=== PATIENT | female | born 1935 | race Caucasian/White ===

== ENCOUNTER 2017-07-02 14:43 | Inpatient (IN) | payer MEDICARE, OTHER ==
[~2017-07-02] VITALS: Ht 162.6 cm; Wt 91.6 kg
[2017-07-02] MEDS ORDERED: ALBUTEROL/IPRATROPIUM 2.5MG/0.5MG, 3 ML ONE (15:18)
[2017-07-02] MEDS ORDERED: SODIUM CHLORIDE FLUSH 10ML SYR IVF ONE (15:30)
[2017-07-02] MEDS ORDERED: ALBUTEROL SULFATE 2.5 MG/3 ML NPPB ONE (15:30)
[2017-07-02 15:51] LABS: BASOPHILS # (AUTO) 0.02 x10^3/uL (0-0.1); BASOPHILS % (AUTO) 0 % (0-1); EOSINOPHILS # (AUTO) 0.21 x10^3/uL (0-0.4); EOSINOPHILS % (AUTO) 4 % (1-7); LYMPHOCYTES # (AUTO) 1.93 x10^3/uL (1-3.4); LYMPHOCYTES % (AUTO) 32 % (22-44); MD NO; MEAN CORPUSCULAR HEMOGLOBIN 32.1 pg (27.0-34.8); MEAN CORPUSCULAR VOLUME 97.5 fL (80-100); MEAN PLATELET VOLUME 7.5 fL (7.4-10.4); MONOCYTES # (AUTO) 0.45 x10^3/uL (0.2-0.8); MONOCYTES % (AUTO) 7 % (2-9); NEUTROPHILS # (AUTO) 3.43 x10^3/uL (1.8-6.8); NEUTROPHILS % (AUTO) 57 % (42-75); PLATELET COUNT 292 x10^3/uL (130-400); RED BLOOD COUNT 4.34 x10^6/uL (3.82-5.3); RED CELL DISTRIBUTION WIDTH 14.9 % (9.6-15.2)
[2017-07-02 16:00] LABS: INTERNATIONAL NORMALIZED RATIO 1.23 (0.93-1.1); PROTHROMBIN TIME 12.6 Seconds (9.6-11.5)
[2017-07-02 16:04] LABS: ALBUMIN 3.3 g/dL (3.4-5.0); ANION GAP 7 mmol/L (5-15); CALCIUM 8.4 mg/dL (8.5-10.1); CHLORIDE 105 mmol/L (98-107)
[2017-07-02 16:10] LABS: ALANINE AMINOTRANSFERASE 28 U/L (12-78); ALKALINE PHOSPHATASE 82 U/L (45-117); BILIRUBIN,TOTAL 0.6 mg/dL (0.2-1.0); CREATININE 1.06 mg/dL (0.55-1.02); TOTAL PROTEIN 7.6 g/dL (6.4-8.2); TROPONIN I < 0.015 ng/mL (0.000-0.045)
[2017-07-02] MEDS ORDERED: ENOXAPARIN 100 MG/ML SQ ONE (17:00)
[2017-07-02] MEDS: SODIUM CHLORIDE 0.9% 1,000 ML IV SCH (17:17)
[2017-07-02] MEDS ORDERED: ROPI4TAB4 PO (17:24)
[2017-07-02] MEDS ORDERED: FURO20TA3 PO (17:24)
[2017-07-02] MEDS ORDERED: DIAZ2TAB3 PO (17:24)
[2017-07-02] MEDS ORDERED: CYCL5TAB PO (17:24)
[2017-07-02] MEDS ORDERED: CELE200C PO (17:24)
[2017-07-02] MEDS ORDERED: LEVO112T4 PO (17:24)
[2017-07-02] MEDS ORDERED: GABA300C10 PO ×2 (17:24)
[2017-07-02] MEDS ORDERED: CITA10TA4 PO (17:24)
[2017-07-02] MEDS ORDERED: SIMV20TA3 PO (17:24)
[2017-07-02] MEDS ORDERED: HYDR-3237 PO (17:24)
[2017-07-02] MEDS ORDERED: WARF-36 PO (17:24)
[2017-07-02] MEDS ORDERED: HYDROcodone/APAP 5/325 TABLET PO PRN (17:30)
[2017-07-02] MEDS: CEFTRIAXONE PMX 2GM/50ML 50 ML IV SCH (17:30)
[2017-07-02] MEDS ORDERED: ACETAMINOPHEN 325 MG TABLET PO PRN (17:30)
[2017-07-02] MEDS ORDERED: ONDANSETRON 2MG/ML, 2ML IVPush PRN (17:30)
[2017-07-02] MEDS ORDERED: GUAIFENESIN/DM 200-20MG, 10ML UDC PO PRN (17:30)
[2017-07-02] MEDS ORDERED: DIAZEPAM 2 MG TABLET PO PRN (17:30)
[2017-07-02] MEDS ORDERED: CEFTRIAXONE PMX 2GM/50ML 50 ML ONE (17:40)
[2017-07-02] MEDS ORDERED: WARFARIN 3 MG TABLET PO-COUM ONE (19:30)
[2017-07-02 19:35] VITALS: BP 143/77
[2017-07-02 20:02] VITALS: BP 143/77
[2017-07-02] MEDS ORDERED: ALBUTEROL SULFATE 2.5 MG/3 ML ONE (20:49)
[2017-07-02] MEDS: SIMVASTATIN 20 MG TABLET PO SCH (21:42)
[2017-07-02] MEDS: ROPINIROLE 1MG TABLET PO SCH (21:42)
[2017-07-02] MEDS: GABAPENTIN 250 MG/5 ML ORAL SOL PO SCH (21:42)
[2017-07-02] MEDS: CYCLOBENZAPRINE 10 MG TABLET PO SCH (21:42)
[2017-07-02 23:46] LABS: RAPID INFLUENZA A Negative (Negative); RAPID INFLUENZA B Negative (Negative)
[2017-07-03 00:13] VITALS: BP 129/70
[2017-07-03] MEDS: LEVOTHYROXINE 112 MCG TABLET PO SCH (05:11)
[2017-07-03 05:17] LABS: INTERNATIONAL NORMALIZED RATIO 1.23 (0.93-1.1); PROTHROMBIN TIME 12.7 Seconds (9.6-11.5)
[2017-07-03 05:21] LABS: BASOPHILS # (AUTO) 0.01 x10^3/uL (0-0.1); BASOPHILS % (AUTO) 0 % (0-1); EOSINOPHILS % (AUTO) 0 % (1-7); LYMPHOCYTES # (AUTO) 0.87 x10^3/uL (1-3.4); LYMPHOCYTES % (AUTO) 16 % (22-44); MD NO; MEAN CORPUSCULAR HEMOGLOBIN 32.2 pg (27.0-34.8); MEAN CORPUSCULAR HGB CONC 32.9 g/dL (32.4-35.8); MEAN CORPUSCULAR VOLUME 97.6 fL (80-100); MEAN PLATELET VOLUME 7.6 fL (7.4-10.4); MONOCYTES # (AUTO) 0.32 x10^3/uL (0.2-0.8); MONOCYTES % (AUTO) 6 % (2-9); NEUTROPHILS # (AUTO) 4.41 x10^3/uL (1.8-6.8); NEUTROPHILS % (AUTO) 79 % (42-75); PLATELET COUNT 286 x10^3/uL (130-400); RED BLOOD COUNT 4.04 x10^6/uL (3.82-5.3); RED CELL DISTRIBUTION WIDTH 14.8 % (9.6-15.2)
[2017-07-03 05:24] LABS: CHLORIDE 107 mmol/L (98-107)
[2017-07-03 05:30] LABS: ANION GAP 7 mmol/L (5-15); CALCIUM 8.6 mg/dL (8.5-10.1); CREATININE 0.97 mg/dL (0.55-1.02)
[2017-07-03 07:36] VITALS: BP 123/70
[2017-07-03] MEDS: GABAPENTIN 250 MG/5 ML ORAL SOL PO SCH (08:00)
[2017-07-03] MEDS: ROPINIROLE 1MG TABLET PO SCH ×2 (08:24→21:05)
[2017-07-03] MEDS: GUAIFENESIN ER 600 MG TABLET PO SCH ×2 (08:25→21:05)
[2017-07-03] MEDS: CYCLOBENZAPRINE 10 MG TABLET PO SCH ×3 (08:25→21:05)
[2017-07-03] MEDS: SODIUM CHLORIDE 0.9% 1,000 ML IV SCH (08:27)
[2017-07-03] MEDS: CITALOPRAM 20 MG TABLET PO SCH (08:27)
[2017-07-03] MEDS: methylPREDNISolone SOD SUCC 125 MG/2 ML IVPush SCH ×3 (08:27→21:06)
[2017-07-03] MEDS ORDERED: GABA600T2 PO ×2 (08:32)
[2017-07-03] MEDS ORDERED: FURO20TA3 PO (08:52)
[2017-07-03] MEDS ORDERED: CYCLOBENZAPRINE 10 MG TABLET PO SCH (09:00)
[2017-07-03] MEDS ORDERED: ROPI2TAB4 PO (09:29)
[2017-07-03] MEDS: GABAPENTIN 400 MG CAPSULE PO SCH ×2 (09:47→21:16)
[2017-07-03] MEDS ORDERED: GABAPENTIN 250 MG/5 ML ORAL SOL PO SCH (11:00)
[2017-07-03] MEDS: GABAPENTIN 300 MG CAPSULE PO SCH ×2 (12:10→17:25)
[2017-07-03 13:24] VITALS: BP 146/76
[2017-07-03] MEDS: CEFTRIAXONE PMX 2GM/50ML 50 ML IV SCH (17:21)
[2017-07-03] MEDS ORDERED: WARFARIN 7.5 MG TABLET PO-COUM ONE (18:00)
[2017-07-03] MEDS: ALBUTEROL/IPRATROPIUM 2.5MG/0.5MG, 3 ML NPPB PRN (19:20)
[2017-07-03 19:29] VITALS: BP 112/63
[2017-07-03] MEDS ORDERED: GABAPENTIN 400 MG CAPSULE PO SCH (21:00)
[2017-07-03] MEDS: SIMVASTATIN 20 MG TABLET PO SCH (21:05)
[2017-07-04 02:14] VITALS: BP 134/62
[2017-07-04] MEDS: methylPREDNISolone SOD SUCC 125 MG/2 ML IVPush SCH ×3 (02:14→16:17)
[2017-07-04] MEDS: LEVOTHYROXINE 112 MCG TABLET PO SCH (05:02)
[2017-07-04 05:30] LABS: BASOPHILS # (AUTO) 0.01 x10^3/uL (0-0.1); BASOPHILS % (AUTO) 0 % (0-1); EOSINOPHILS % (AUTO) 0 % (1-7); LYMPHOCYTES # (AUTO) 0.74 x10^3/uL (1-3.4); LYMPHOCYTES % (AUTO) 8 % (22-44); MD NO; MEAN CORPUSCULAR HEMOGLOBIN 32.2 pg (27.0-34.8); MEAN CORPUSCULAR HGB CONC 33.2 g/dL (32.4-35.8); MEAN CORPUSCULAR VOLUME 96.9 fL (80-100); MEAN PLATELET VOLUME 7.6 fL (7.4-10.4); MONOCYTES # (AUTO) 0.17 x10^3/uL (0.2-0.8); MONOCYTES % (AUTO) 2 % (2-9); NEUTROPHILS # (AUTO) 8.43 x10^3/uL (1.8-6.8); NEUTROPHILS % (AUTO) 90 % (42-75); PLATELET COUNT 273 x10^3/uL (130-400); RED BLOOD COUNT 3.99 x10^6/uL (3.82-5.3)
[2017-07-04 05:32] LABS: INTERNATIONAL NORMALIZED RATIO 1.49 (0.93-1.1); PROTHROMBIN TIME 15.4 Seconds (9.6-11.5)
[2017-07-04 05:34] LABS: CALCIUM 8.9 mg/dL (8.5-10.1); CHLORIDE 107 mmol/L (98-107)
[2017-07-04 05:52] LABS: ANION GAP 8 mmol/L (5-15); CREATININE 0.97 mg/dL (0.55-1.02)
[2017-07-04 08:40] VITALS: BP 153/82
[2017-07-04] MEDS: GABAPENTIN 400 MG CAPSULE PO SCH ×2 (08:47→23:21)
[2017-07-04] MEDS: GUAIFENESIN ER 600 MG TABLET PO SCH ×2 (08:48→23:17)
[2017-07-04] MEDS: ROPINIROLE 1MG TABLET PO SCH ×2 (08:48→23:17)
[2017-07-04] MEDS: CYCLOBENZAPRINE 10 MG TABLET PO SCH ×3 (08:49→23:17)
[2017-07-04] MEDS: CITALOPRAM 20 MG TABLET PO SCH (08:49)
[2017-07-04 12:07] VITALS: BP 126/76
[2017-07-04] MEDS: GABAPENTIN 300 MG CAPSULE PO SCH ×2 (12:51→16:17)
[2017-07-04] MEDS: CEFTRIAXONE PMX 2GM/50ML 50 ML IV SCH (16:17)
[2017-07-04] MEDS ORDERED: WARFARIN 7.5 MG TABLET PO-COUM ONE (18:00)
[2017-07-04 19:22] VITALS: BP 130/70
[2017-07-04] MEDS: ALBUTEROL/IPRATROPIUM 2.5MG/0.5MG, 3 ML NPPB PRN (22:51)
[2017-07-04] MEDS: SIMVASTATIN 20 MG TABLET PO SCH (23:16)
[2017-07-05] MEDS: methylPREDNISolone SOD SUCC 125 MG/2 ML IVPush SCH (00:21)
[2017-07-05 01:44] VITALS: BP 113/65
[2017-07-05 05:12] LABS: INTERNATIONAL NORMALIZED RATIO 2.12 (0.93-1.1); PROTHROMBIN TIME 21.7 Seconds (9.6-11.5)
[2017-07-05] MEDS: LEVOTHYROXINE 112 MCG TABLET PO SCH (06:14)
[2017-07-05 07:00] VITALS: BP 125/71
[2017-07-05] MEDS ORDERED: CEFDINIR 300 MG CAPSULE ONE (09:19)
[2017-07-05] MEDS ORDERED: CEFDINIR 300 MG CAPSULE PO SCH (09:30)
[2017-07-05] MEDS: CYCLOBENZAPRINE 10 MG TABLET PO SCH (09:40)
[2017-07-05] MEDS: GUAIFENESIN ER 600 MG TABLET PO SCH (09:44)
[2017-07-05] MEDS: ROPINIROLE 1MG TABLET PO SCH (09:47)
[2017-07-05] MEDS: CITALOPRAM 20 MG TABLET PO SCH (09:51)
[2017-07-05] MEDS: GABAPENTIN 400 MG CAPSULE PO SCH (09:53)
[2017-07-05 12:07] VITALS: BP 127/75
[2017-07-05] MEDS: GABAPENTIN 300 MG CAPSULE PO SCH (12:23)
[2017-07-05] MEDS ORDERED: PRED20TA PO (12:34)
[2017-07-05] MEDS ORDERED: GUAI600T31 PO (12:34)
[2017-07-05] MEDS ORDERED: CEFD300C37 PO (12:34)
[2017-07-05] MEDS ORDERED: WARFARIN 3 MG TABLET PO-COUM ONE (14:46)
[2017-07-05] MEDS ORDERED: WARFARIN 3 MG TABLET PO-COUM SCH (18:00)
== END 2017-07-05 15:27 | disposition home or self-care (01) | DRG 189 ==
LOC: ED 16:54 → EDIP 16:55 → ED 17:35 → 4WST 18:48
PROVIDERS: ADMIT Emergency Medicine; ATTEND Emergency Medicine
DX: J96.01 Acute respiratory failure with hypoxia (principal); G35 Multiple sclerosis; G47.30 Sleep apnea, unspecified; E03.9 Hypothyroidism, unspecified; E78.5 Hyperlipidemia, unspecified; I10 Essential (primary) hypertension; Z86.711 Personal history of pulmonary embolism; Z86.718 Personal history of other venous thrombosis and embolism; Z96.641 Presence of right artificial hip joint; Z90.710 Acquired absence of both cervix and uterus; Z85.41 Personal history of malignant neoplasm of cervix uteri; Z82.3 Family history of stroke; Z80.52 Family history of malignant neoplasm of bladder; Z79.01 Long term (current) use of anticoagulants; J20.9 Acute bronchitis, unspecified
CPT/HCPCS: 36415; 36600; 71045; 80048; 80053; 82803; 84484; 85025; 85610; 85730; 87070; 87205; 87400; 93005; 94640; 96372; 99285; J0696; J1650; J7620; J2930; J7030; J7512

== ENCOUNTER 2018-01-18 13:05 | Emergency (ER) | payer OTHER ==
[~2018-01-18] VITALS: Ht 157.5 cm; Wt 88.0 kg
[~2018-01-18 13:05] MED LIST: CEFD300C37 PO; CELE200C PO; CITA10TA4 PO; CYCL5TAB PO; DIAZ2TAB3 PO; FURO20TA3 PO; GABA300C10 PO; GABA600T2 PO; GUAI600T31 PO; HYDR-3237 PO; LEVO112T4 PO; PRED20TA PO; ROPI2TAB4 PO; ROPI4TAB8 PO; SIMV20TA3 PO; WARF-36 PO
[2018-01-18 13:57] LABS: BASOPHILS # (AUTO) 0.06 x10^3/uL (0-0.1); BASOPHILS % (AUTO) 1 % (0-1); EOSINOPHILS % (AUTO) 3 % (1-7); LYMPHOCYTES # (AUTO) 1.68 x10^3/uL (1-3.4); LYMPHOCYTES % (AUTO) 28 % (22-44); MD NO; MEAN CORPUSCULAR HEMOGLOBIN 32.2 pg (27.0-34.8); MEAN CORPUSCULAR HGB CONC 33.7 g/dL (32.4-35.8); MEAN CORPUSCULAR VOLUME 95.6 fL (80-100); MEAN PLATELET VOLUME 7.9 fL (7.4-10.4); MONOCYTES # (AUTO) 0.53 x10^3/uL (0.2-0.8); MONOCYTES % (AUTO) 9 % (2-9); NEUTROPHILS # (AUTO) 3.55 x10^3/uL (1.8-6.8); NEUTROPHILS % (AUTO) 59 % (42-75); PLATELET COUNT 339 x10^3/uL (130-400); RED BLOOD COUNT 4.55 x10^6/uL (3.82-5.3)
[2018-01-18 14:06] LABS: ALBUMIN 3.8 g/dL (3.4-5.0); ANION GAP 8 mmol/L (5-15); CALCIUM 9.6 mg/dL (8.5-10.1); CHLORIDE 104 mmol/L (98-107); CREATININE 1.02 mg/dL (0.55-1.02)
[2018-01-18 14:19] LABS: INTERNATIONAL NORMALIZED RATIO 2.09 (0.93-1.1); PROTHROMBIN TIME 21.4 Seconds (9.6-11.5)
[2018-01-18 14:51] VITALS: BP 142/69
[2018-01-18] MEDS ORDERED: SODIUM CHLORIDE 0.9% 1,000 ML IV ONE (14:55)
[2018-01-18] MEDS ORDERED: SODIUM CHLORIDE FLUSH 10ML SYR IVF ONE (15:00)
[2018-01-18 17:36] LABS: MICROSCOPIC AUTO
[2018-01-18 17:37] LABS: CULTURE INDICATED? YES
== END 2018-01-18 18:14 | disposition home or self-care (01) ==
LOC: ED 18:07
DX: N30.01 Acute cystitis with hematuria (principal); N95.8 Other specified menopausal and perimenopausal disorders; N93.9 Abnormal uterine and vaginal bleeding, unspecified; E78.5 Hyperlipidemia, unspecified; Z87.891 Personal history of nicotine dependence
CPT/HCPCS: 36415; 74177; 76856; 80048; 81001; 82040; 85025; 85610; 85730; 87077; 87086; 99285; J7030; 87186

== ENCOUNTER → 2018-04-11 | Outpatient (CLI) | payer OTHER ==
[~2018-04-11] MED LIST changes: -GABA600T2 PO; +GABA600T7 PO
== END | disposition home or self-care (01) ==
LOC: CVU 12:15
PROVIDERS: ATTEND Nurse Practitioner
DX: I83.893 Varicose veins of bilateral lower extremities with other complications (principal); K21.9 Gastro-esophageal reflux disease without esophagitis; I87.2 Venous insufficiency (chronic) (peripheral)
CPT/HCPCS: 93922; 93970

== ENCOUNTER 2018-05-10 10:44 | Emergency (ER) | payer OTHER ==
[2018-05-10 11:05] VITALS: BP 116/73
[2018-05-10 11:47] LABS: BASOPHILS # (AUTO) 0.01 x10^3/uL (0-0.1); BASOPHILS % (AUTO) 0 % (0-1); EOSINOPHILS # (AUTO) 0.18 x10^3/uL (0-0.4); EOSINOPHILS % (AUTO) 4 % (1-7); LYMPHOCYTES # (AUTO) 1.34 x10^3/uL (1-3.4); LYMPHOCYTES % (AUTO) 28 % (22-44); MD NO; MEAN CORPUSCULAR HEMOGLOBIN 30.9 pg (27.0-34.8); MEAN CORPUSCULAR HGB CONC 32.8 g/dL (32.4-35.8); MEAN CORPUSCULAR VOLUME 94.2 fL (80-100); MEAN PLATELET VOLUME 7.5 fL (7.4-10.4); MONOCYTES # (AUTO) 0.44 x10^3/uL (0.2-0.8); MONOCYTES % (AUTO) 9 % (2-9); NEUTROPHILS # (AUTO) 2.79 x10^3/uL (1.8-6.8); NEUTROPHILS % (AUTO) 59 % (42-75); PLATELET COUNT 340 x10^3/uL (130-400); RED BLOOD COUNT 4.01 x10^6/uL (3.82-5.3)
[2018-05-10 11:56] LABS: CHLORIDE 107 mmol/L (98-107)
--- NOTE | 2018-05-10 11:56 | NUR ---
PT TO US NOW
[2018-05-10 12:03] LABS: ALBUMIN 3.3 g/dL (3.4-5.0); ANION GAP 5 mmol/L (5-15); CALCIUM 8.8 mg/dL (8.5-10.1); CREATININE 1.22 mg/dL (0.55-1.02)
== END 2018-05-10 14:10 | disposition home or self-care (01) ==
LOC: ED 12:46
DX: L03.116 Cellulitis of left lower limb (principal); I83.12 Varicose veins of left lower extremity with inflammation; E78.5 Hyperlipidemia, unspecified; Z87.891 Personal history of nicotine dependence
CPT/HCPCS: 36415; 80048; 82040; 85025; 99284

== ENCOUNTER 2020-08-25 16:53 | Observation (INO) | payer MEDICARE ==
[~2020-08-25] VITALS: Ht 162.6 cm; Wt 86.0 kg
[~2020-08-25 16:53] MED LIST changes: +OMEP-110 PO; -ROPI2TAB4 PO; +ROPI2TAB8 PO; +SIMV20TA19 PO; -SIMV20TA3 PO
--- NOTE | 2020-08-25 17:13 | NUR ---
Pt placed on 1L O2 for fluctuating RA sat at and below 90%
--- NOTE | 2020-08-25 18:17 | NUR ---
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
[2020-08-25] MEDS ORDERED: SODIUM CHLORIDE FLUSH 10ML SYR IVF ONE (18:30)
--- NOTE | 2020-08-25 18:30 | NUR ---
PT AMBULATED TO ROOM FROM LOBBY. PT CO BRIGHT RED RECTAL BLEEDING X3 DAYS. PT DENIES ANY PAIN. PT DENIES ANY HISTORY OF GI BLEED OR TAKING ANY BLOOD THINNERS.
[2020-08-25 18:45] LABS: BASOPHILS % (AUTO) 1 % (0-1); EOSINOPHILS % (AUTO) 3 % (1-7); LYMPHOCYTES % (AUTO) 31 % (22-44); MEAN CORPUSCULAR HGB CONC 32.9 g/dL (32.4-35.8); MEAN PLATELET VOLUME 7.4 fL (7.4-10.4); MONOCYTES % (AUTO) 12 % (2-9); NEUTROPHILS % (AUTO) 53 % (42-75); PLATELET COUNT 248 x10^3/uL (130-400); RED BLOOD COUNT 3.87 x10^6/uL (3.82-5.3); RED CELL DISTRIBUTION WIDTH 15.3 % (9.6-15.2)
[2020-08-25 18:57] LABS: ALANINE AMINOTRANSFERASE 17 U/L (12-78); ALBUMIN 3.5 g/dL (3.4-5.0); ANION GAP 3 mmol/L (5-15); CALCIUM 8.4 mg/dL (8.5-10.1); CHLORIDE 108 mmol/L (98-107)
[2020-08-25 18:59] LABS: ALKALINE PHOSPHATASE 60 U/L (45-117); BILIRUBIN,TOTAL 0.8 mg/dL (0.2-1.0); INTERNATIONAL NORMALIZED RATIO 1.76 (0.93-1.1); PROTHROMBIN TIME 18.6 Seconds (9.6-11.5); TOTAL PROTEIN 6.7 g/dL (6.4-8.2)
--- NOTE | 2020-08-25 20:08 | NUR ---
PT RESTING IN [place] COMFORTABLY. CALL LIGHT WITHIN REACH. ALL NEEDS MET.
--- NOTE | 2020-08-25 21:20 | NUR ---
1st contact c pt. resting on cart in nad. made aware of plan to admit. denies any needs. called family to update on plan. daughter kem contacted.. to relay to son (ria [phone]) & father
[2020-08-25] MEDS ORDERED: BACLOFEN 10 MG TABLET PO PRN (23:00)
[2020-08-25] MEDS ORDERED: ENALAPRILAT 1.25 MG/ML, 2ML IVPush PRN (23:00)
[2020-08-25] MEDS ORDERED: GUAIFENESIN/DM 200-20MG, 10ML UDC PO PRN (23:00)
[2020-08-25] MEDS ORDERED: DOCUSATE 100 MG CAPSULE PO PRN (23:00)
[2020-08-25] MEDS ORDERED: ACETAMINOPHEN 325 MG TABLET PO PRN (23:00)
[2020-08-25] MEDS ORDERED: TEMAZEPAM 15 MG CAPSULE PO PRN (23:00)
[2020-08-25] MEDS ORDERED: morphine SULFATE 10 MG/ML, 1ML IVPush PRN (23:00)
[2020-08-25] MEDS ORDERED: ONDANSETRON 2MG/ML, 2ML IVPush PRN (23:00)
[2020-08-25] MEDS ORDERED: HYDROcodone/APAP 5/325 TABLET PO PRN (23:00)
[2020-08-25 23:37] VITALS: BP 164/78
[2020-08-26] MEDS: ROPINIROLE 1MG TABLET PO SCH ×5 (00:33→21:11)
[2020-08-26] MEDS: PANTOPRAZOLE 40 MG IV IVPush SCH ×3 (00:33→23:24)
[2020-08-26] MEDS: SIMVASTATIN 20 MG TABLET PO SCH ×2 (00:34→21:11)
[2020-08-26] MEDS: LACTATED RINGERS 1,000 ML IV SCH ×3 (00:34→21:15)
[2020-08-26 02:22] VITALS: BP 133/73
[2020-08-26 05:33] LABS: BASOPHILS % (AUTO) 1 % (0-1); EOSINOPHILS % (AUTO) 4 % (1-7); LYMPHOCYTES % (AUTO) 31 % (22-44); MEAN CORPUSCULAR HEMOGLOBIN 31.1 pg (27.0-34.8); MEAN CORPUSCULAR HGB CONC 33.4 g/dL (32.4-35.8); MEAN PLATELET VOLUME 7.6 fL (7.4-10.4); MONOCYTES % (AUTO) 12 % (2-9); NEUTROPHILS % (AUTO) 52 % (42-75); PLATELET COUNT 229 x10^3/uL (130-400); RED BLOOD COUNT 3.72 x10^6/uL (3.82-5.3); RED CELL DISTRIBUTION WIDTH 15.4 % (9.6-15.2)
[2020-08-26 05:50] LABS: CHLORIDE 109 mmol/L (98-107)
[2020-08-26 05:57] LABS: ANION GAP 4 mmol/L (5-15); CALCIUM 8.3 mg/dL (8.5-10.1); CREATININE 0.69 mg/dL (0.55-1.02)
[2020-08-26 06:42] VITALS: BP 111/50
[2020-08-26] MEDS: GABAPENTIN 400 MG CAPSULE PO SCH ×2 (09:36→21:15)
[2020-08-26] MEDS: CITALOPRAM 10 MG TABLET PO SCH (09:38)
[2020-08-26] MEDS: FUROSEMIDE 20 MG TABLET PO SCH (09:39)
[2020-08-26] MEDS: LEVOTHYROXINE 112 MCG TABLET PO SCH (09:40)
[2020-08-26] MEDS: GABAPENTIN 300 MG CAPSULE PO SCH ×2 (11:27→16:54)
[2020-08-26 13:32] VITALS: BP 120/51
[2020-08-26] MEDS ORDERED: GOLYTELY 4,000ML ORAL.SOL PO ONE (16:00)
[2020-08-26 18:42] VITALS: BP 128/73
[2020-08-27 00:14] VITALS: BP 170/78
[2020-08-27 01:49] VITALS: BP 105/65
[2020-08-27] MEDS: ROPINIROLE 1MG TABLET PO SCH ×2 (05:20→15:17)
[2020-08-27 06:08] LABS: INTERNATIONAL NORMALIZED RATIO 1.39 (0.93-1.1); PROTHROMBIN TIME 14.8 Seconds (9.6-11.5)
[2020-08-27 06:58] VITALS: BP 116/61
[2020-08-27] MEDS: GABAPENTIN 400 MG CAPSULE PO SCH (07:41)
[2020-08-27] MEDS: CITALOPRAM 10 MG TABLET PO SCH (07:41)
[2020-08-27] MEDS: LACTATED RINGERS 1,000 ML IV SCH (07:41)
[2020-08-27] MEDS: FUROSEMIDE 20 MG TABLET PO SCH (07:42)
[2020-08-27] MEDS: LEVOTHYROXINE 112 MCG TABLET PO SCH (07:42)
[2020-08-27] MEDS ORDERED: OXYcodone 5 MG/5 ML ORAL.SOL UDC PO PRN (11:30)
[2020-08-27] MEDS ORDERED: FENTANYL PF 100 MCG/2ML IV PRN (11:30)
[2020-08-27] MEDS ORDERED: hydrALAzine 20 MG/ML, 1ML IV PRN (11:30)
[2020-08-27] MEDS ORDERED: LABETALOL 5MG/ML, 20ML IV PRN (11:30)
[2020-08-27] MEDS ORDERED: PROMETHAZINE 25 MG/ML, 1ML IVPush PRN (11:30)
[2020-08-27] MEDS ORDERED: morphine SULFATE 10 MG/ML, 1ML IVPush PRN (11:30)
[2020-08-27] MEDS ORDERED: ONDANSETRON 2MG/ML, 2ML IVPush PRN (11:30)
[2020-08-27] MEDS ORDERED: MIDAZOLAM 1 MG/ML, 2ML ONE (11:56)
[2020-08-27] MEDS ORDERED: FENTANYL PF 100 MCG/2ML ONE (11:56)
[2020-08-27] MEDS ORDERED: PROPOFOL 10 MG/ML, 20ML ONE (12:28)
[2020-08-27 13:51] VITALS: BP 121/66
[2020-08-27] MEDS: GABAPENTIN 300 MG CAPSULE PO SCH (15:17)
[2020-08-27] MEDS: PANTOPRAZOLE 40 MG IV IVPush SCH (15:17)
== END 2020-08-27 16:52 | disposition home or self-care (01) ==
LOC: ED 17:30 → EDIP 20:55 → INTOOBSV 20:55 → 3N 23:03
PROVIDERS: ADMIT Internal Medicine; ATTEND Hospitalist
DX: K57.31 Diverticulosis of large intestine without perforation or abscess with bleeding (principal); Z20.822 Contact with and (suspected) exposure to COVID-19; K92.1 Melena; K63.5 Polyp of colon; D50.0 Iron deficiency anemia secondary to blood loss (chronic); J44.9 Chronic obstructive pulmonary disease, unspecified; E78.5 Hyperlipidemia, unspecified; G25.81 Restless legs syndrome; K21.9 Gastro-esophageal reflux disease without esophagitis; F32.9 Major depressive disorder, single episode, unspecified; G62.9 Polyneuropathy, unspecified; E03.9 Hypothyroidism, unspecified; R32 Unspecified urinary incontinence; E66.9 Obesity, unspecified; E87.8 Other disorders of electrolyte and fluid balance, not elsewhere classified; Z86.711 Personal history of pulmonary embolism; Z87.891 Personal history of nicotine dependence; Z79.01 Long term (current) use of anticoagulants; Z66 Do not resuscitate; Z79.899 Other long term (current) drug therapy; Z85.41 Personal history of malignant neoplasm of cervix uteri; Z90.710 Acquired absence of both cervix and uterus
CPT/HCPCS: 36415; 45378; 80048; 80053; 85014; 85018; 85025; 85610; 85730; 87635; 88305; 93005; 96361; 96374; 96375; 96376; 97163; 99284; C9113; G0378; J2250; J2704; J3010; J7120

== ENCOUNTER 2020-09-18 21:50 | Observation (INO) | payer MEDICARE ==
[~2020-09-18] VITALS: Ht 162.6 cm; Wt 93.9 kg
--- NOTE | 2020-09-18 22:11 | NUR ---
LEFT HIP PAIN S/P FALL YESTERDAY
[2020-09-18 23:10] LABS: BASOPHILS % (AUTO) 1 % (0-1); EOSINOPHILS % (AUTO) 5 % (1-7); LYMPHOCYTES % (AUTO) 36 % (22-44); MEAN CORPUSCULAR HEMOGLOBIN 31.1 pg (27.0-34.8); MEAN CORPUSCULAR HGB CONC 33.5 g/dL (32.4-35.8); MEAN PLATELET VOLUME 7.8 fL (7.4-10.4); MONOCYTES % (AUTO) 12 % (2-9); NEUTROPHILS % (AUTO) 47 % (42-75); PLATELET COUNT 248 x10^3/uL (130-400); RED BLOOD COUNT 3.75 x10^6/uL (3.82-5.3); RED CELL DISTRIBUTION WIDTH 15.2 % (9.6-15.2)
[2020-09-18 23:11] LABS: CALCIUM 8.2 mg/dL (8.5-10.1); CREATININE 0.82 mg/dL (0.55-1.02)
[2020-09-18 23:24] LABS: ANION GAP 1 mmol/L (5-15); CHLORIDE 109 mmol/L (98-107)
--- NOTE | 2020-09-18 23:25 | NUR ---
PT IN NAD AWAITING ADMIT PER
--- NOTE | 2020-09-18 23:48 | NUR ---
REPORT TO AUDREY PT TO 341 WITH TECH
[2020-09-19] MEDS ORDERED: D5%-0.45% NACL 1,000 ML IV SCH (00:30)
[2020-09-19] MEDS ORDERED: POLYETHYLENE GLYCOL 17 GM PACKET PO PRN (00:30)
[2020-09-19] MEDS ORDERED: ONDANSETRON 2MG/ML, 2ML IVPush PRN (00:30)
[2020-09-19] MEDS ORDERED: BISACODYL 10 MG SUPP PR PRN (00:30)
[2020-09-19] MEDS ORDERED: LIDODERM 5% PATCH TD PRN (00:30)
[2020-09-19] MEDS ORDERED: OXYcodone IR 5MG TABLET PO PRN (00:30)
[2020-09-19] MEDS ORDERED: ONDANSETRON ODT 4 MG PO PRN (00:30)
[2020-09-19] MEDS ORDERED: METHOCARBAMOL 500 MG TABLET PO PRN (00:30)
[2020-09-19] MEDS ORDERED: ENALAPRILAT 1.25 MG/ML, 2ML IVPush PRN (00:30)
[2020-09-19 00:49] VITALS: BP 128/67
[2020-09-19 00:51] VITALS: BP 128/67
[2020-09-19] MEDS: ACETAMINOPHEN 500 MG TABLET PO SCH ×5 (01:42→21:33)
[2020-09-19 01:57] LABS: INTERNATIONAL NORMALIZED RATIO 2.55 (0.93-1.1); PROTHROMBIN TIME 26.1 Seconds (9.6-11.5)
[2020-09-19 06:21] VITALS: BP 107/62
[2020-09-19] MEDS: ROPINIROLE 1MG TABLET PO SCH ×4 (06:35→21:33)
[2020-09-19] MEDS: CITALOPRAM 10 MG TABLET PO SCH (08:15)
[2020-09-19] MEDS: GABAPENTIN 400 MG CAPSULE PO SCH ×2 (08:15→21:32)
[2020-09-19] MEDS: SENNA/DOCUSATE TABLET PO SCH (08:15)
[2020-09-19] MEDS: LEVOTHYROXINE 112 MCG TABLET PO SCH (08:16)
[2020-09-19] MEDS: GABAPENTIN 300 MG CAPSULE PO SCH ×2 (11:20→16:18)
[2020-09-19 13:21] VITALS: BP 109/69
[2020-09-19 18:29] VITALS: BP 97/62
[2020-09-19] MEDS ORDERED: SIMVASTATIN 20 MG TABLET PO SCH (21:00)
[2020-09-20 01:31] VITALS: BP 157/81
[2020-09-20 04:41] LABS: BASOPHILS % (AUTO) 1 % (0-1); EOSINOPHILS % (AUTO) 4 % (1-7); LYMPHOCYTES % (AUTO) 27 % (22-44); MEAN CORPUSCULAR HEMOGLOBIN 31.1 pg (27.0-34.8); MEAN CORPUSCULAR HGB CONC 33.7 g/dL (32.4-35.8); MEAN PLATELET VOLUME 7.6 fL (7.4-10.4); MONOCYTES % (AUTO) 10 % (2-9); NEUTROPHILS % (AUTO) 58 % (42-75); PLATELET COUNT 246 x10^3/uL (130-400); RED BLOOD COUNT 3.92 x10^6/uL (3.82-5.3); RED CELL DISTRIBUTION WIDTH 14.8 % (9.6-15.2)
[2020-09-20 04:51] LABS: ALBUMIN 3.1 g/dL (3.4-5.0); CALCIUM 8.5 mg/dL (8.5-10.1); CREATININE 0.77 mg/dL (0.55-1.02); INTERNATIONAL NORMALIZED RATIO 2.19 (0.93-1.1); PROTHROMBIN TIME 22.6 Seconds (9.6-11.5)
[2020-09-20 05:02] LABS: ANION GAP 2 mmol/L (5-15); CHLORIDE 108 mmol/L (98-107)
[2020-09-20] MEDS: ACETAMINOPHEN 500 MG TABLET PO SCH ×2 (06:17→11:33)
[2020-09-20] MEDS: ROPINIROLE 1MG TABLET PO SCH ×2 (06:17→11:33)
[2020-09-20 07:00] VITALS: BP 129/65
[2020-09-20] MEDS: LEVOTHYROXINE 112 MCG TABLET PO SCH (09:00)
[2020-09-20] MEDS: CITALOPRAM 10 MG TABLET PO SCH (09:31)
[2020-09-20] MEDS: GABAPENTIN 400 MG CAPSULE PO SCH (09:31)
[2020-09-20] MEDS: SENNA/DOCUSATE TABLET PO SCH (09:31)
[2020-09-20] MEDS: GABAPENTIN 300 MG CAPSULE PO SCH ×2 (11:34→12:08)
[2020-09-20 12:28] VITALS: BP 131/57
== END 2020-09-20 14:32 | disposition home or self-care (01) ==
LOC: ED 22:00 → 3N 23:23 → INTOOBSV 23:23 → 4NW 09-19 00:01 → DCLOUNGE 09-20 14:23
PROVIDERS: ADMIT Family Medicine; ATTEND Family Medicine
DX: M25.552 Pain in left hip (principal); J44.9 Chronic obstructive pulmonary disease, unspecified; J96.10 Chronic respiratory failure, unspecified whether with hypoxia or hypercapnia; E78.5 Hyperlipidemia, unspecified; G25.81 Restless legs syndrome; G62.9 Polyneuropathy, unspecified; F32.9 Major depressive disorder, single episode, unspecified; E03.9 Hypothyroidism, unspecified; K21.9 Gastro-esophageal reflux disease without esophagitis; R32 Unspecified urinary incontinence; Z79.01 Long term (current) use of anticoagulants; Z79.899 Other long term (current) drug therapy; Z87.891 Personal history of nicotine dependence; Z86.711 Personal history of pulmonary embolism; Z96.642 Presence of left artificial hip joint; Z85.41 Personal history of malignant neoplasm of cervix uteri; Z90.710 Acquired absence of both cervix and uterus; Z99.81 Dependence on supplemental oxygen; Z66 Do not resuscitate; W07.XXXA Fall from chair, initial encounter; Y93.89 Activity, other specified; Y92.89 Other specified places as the place of occurrence of the external cause
CPT/HCPCS: 36415; 72192; 73502; 80048; 80069; 83735; 85025; 85610; 97161; 97166; 99284; G0378